=== PATIENT | female | born 1950 | race Caucasian/White ===

== ENCOUNTER 2016-10-21 13:43 | Day surgery (SDC) | payer OTHER ==
[2016-10-21] VITALS (23 sets, daily range): BP systolic 102–177; BP diastolic 51–67; PULSE 54–74; RESP 14–20; Ht 157.5 cm; Wt 60.0 kg
[~2016-10-21] VITALS: Ht 157.5 cm; Wt 60.0 kg
[~2016-10-21 13:43] MED LIST: LACTATED RINGER'S 1,000 ML IV* SCH; URSO300C3 PO
[2016-10-21] MEDS ORDERED: CHOL100062 PO (14:21)
[2016-10-21] MEDS ORDERED: FENTAnyl 50 MCG/ML VIAL ONE (15:51)
[2016-10-21] MEDS ORDERED: LIDOCAINE 2% (SDV) 5 ML INJ ONE (15:51)
[2016-10-21] MEDS ORDERED: PROPOFOL 40 ML ONE (15:51)
--- NOTE | 2016-10-21 15:51 | HPN ---
Date/Time of Note Date/Time of Note DATE: 10/21/16 TIME: 15:51 Interval H&P Admission Note Pt. seen H&P reviewed: No system changes KRISTIE GALLEGO Oct 21, 2016 15:51
[2016-10-21] MEDS ORDERED: CEFAZOLIN 1 GM INJ ONE (15:58)
[2016-10-21] MEDS ORDERED: hydrALAzine 20 MG INJ IV PRN (16:00)
[2016-10-21] MEDS ORDERED: FENTAnyl 50 MCG/ML VIAL IV PRN ×3 (16:00)
[2016-10-21] MEDS ORDERED: EPHEDrine SULFATE 50 MG/5 ML SYG IV PRN (16:00)
[2016-10-21] MEDS ORDERED: ONDANSETRON 4 MG INJ IV PRN (16:00)
[2016-10-21] MEDS ORDERED: LIDOCAINE 1% (STERILE-PAK) 30 ML INJ ONE (16:00)
[2016-10-21] MEDS ORDERED: MEPERIDINE 25 MG INJ IV PRN (16:00)
[2016-10-21] MEDS ORDERED: BUPIVACAINE 0.5% (SDV) 30 ML INJ ONE (16:00)
[2016-10-21] MEDS ORDERED: OXYCODONE/ACETAMINOPHEN (5/325) TAB PO PRN ×2 (16:00)
[2016-10-21] MEDS ORDERED: LABETALOL HCL 20MG INJ IV PRN (16:00)
[2016-10-21] MEDS ORDERED: DIPHENHYDRAMINE 50 MG INJ IV PRN (16:00)
--- NOTE | 2016-10-21 16:55 | OPR ---
DATE OF OPERATION: 10/21/2016 SURGEON: Mendel Shah MD ANESTHESIA: Local and MAC PREOPERATIVE DIAGNOSIS: Left index finger mass. 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 INDICATION FOR PROCEDURE: A 66-year-old female with a left index finger mass which was painful and increasing in size. We discussed the options and the patient elected to proceed with surgical intervention, understanding the risks and benefits. DESCRIPTION OF PROCEDURE: The patient was seen in the preoperative area and all further questions were answered. Again, she gave informed consent, understanding risks and benefits. She was taken to the operative suite and placed in supine position. She was placed under sedation and Ancef 2 grams given. Tourniquet placed in left upper extremity and left upper extremity was prepped with ChloraPrep stick and draped in the usual sterile fashion. Esmarch bandage was used to exsanguinate the extremity and tourniquet inflated to 250 mmHg. A 2 cm incision over the dorsal index finger on the radial aspect of the mass was utilized with sharp dissection and carried down through skin and subcutaneous tissue. Scissor dissection divided the vascular mass off of the deep dermal layer as well as the extensor tendon and was found to be 2 bleeding vessels on both the radial and ulnar aspects of the malformation. These 2 vessels were cauterized and once the mass was completely exposed circumferentially, it was excised as 1 piece. It was sent for specimen. Wound was copiously irrigated and skin closed with 5-0 nylon. Xeroform was placed over the wound followed by sterile gauze, Kerlix and Coban dressing. Tourniquet deflated after 9 minutes. The patient was awakened from anesthesia. She was taken to the postoperative suite in stable condition and tolerated the procedure well. SPECIMENS: Left index finger vascular mass. ESTIMATED BLOOD LOSS: 5 mL. SPONGE, INSTRUMENT, NEEDLE COUNTS: Correct. TOURNIQUET TIME: 9 minutes. CONDITION ON DISCHARGE: Stable. Dictated By: MENDEL TAM/BILL Conf#: [id number] DID#: [id number] [facility]
[2016-10-21] MEDS ORDERED: HYDROCODONE/APAP (5/325) TAB PO PRN (17:30)
== END 2016-10-21 19:10 | disposition home or self-care (01) ==
LOC: SDS 13:43
PROVIDERS: ATTEND Orthopaedic Surgery Hand Surgery
DX: I86.8 Varicose veins of other specified sites (principal)
CPT/HCPCS: 26115; 88307; J0360; J0690; J2405; J3010; Z7512; Z7610